=== PATIENT | female | born 1960 | race Caucasian/White ===

== ENCOUNTER 2021-06-19 05:39 | Day surgery (SDC) | payer OTHER ==
[~2021-06-19] VITALS: Ht 165.1 cm; Wt 109.5 kg
[2021-06-19] MEDS ORDERED: BENZOCAINE 20% 50 MCG/SPRAY 57 GM TP ONE (05:40)
[2021-06-19] MEDS ORDERED: LIDOCAINE 2% 30 ML JELLY TP ONE (05:40)
[2021-06-19] MEDS ORDERED: ALBUTEROL SULFATE 2.5 MG/0.5 ML NEB SOLUTION NEB ONE (05:40)
[2021-06-19] MEDS ORDERED: SODIUM CHLORIDE 0.9% 1,000 ML ONE (06:38)
[2021-06-19 06:59] LABS: COVID AG,FIA SOURCE NASOPHARYNGEAL
[2021-06-19] MEDS ORDERED: SODIUM CHLORIDE 0.9% 1,000 ML IV ONE (07:00)
[2021-06-19] MEDS ORDERED: FentaNYL CITRATE PF 100 MCG/2 ML VIAL ONE (07:43)
[2021-06-19] MEDS ORDERED: MIDAZOLAM HCL 5 MG/ML VIAL ONE (07:43)
[2021-06-19 08:20] LABS: GLUCOMETER DEV NAME(LOC) SDS.; GLUCOSE,POINT OF CARE 230 MG/DL (70-110)
[2021-06-19] MEDS ORDERED: MethylPREDNISolone SOD SUCC 125 MG/2 ML VIAL ONE (08:53)
[2021-06-19] MEDS ORDERED: MethylPREDNISolone SOD SUCC 125 MG/2 ML VIAL IVP ONE (09:00)
[2021-06-19] MEDS ORDERED: OXYGEN THERAPY IH SCH (20:00)
== END 2021-06-19 11:00 | disposition home or self-care (01) ==
LOC: SURGERY 05:39
PROVIDERS: ATTEND Internal Medicine Critical Care Medicine
DX: J38.4 Edema of larynx (principal); B37.0 Candidal stomatitis; E11.9 Type 2 diabetes mellitus without complications; Z79.899 Other long term (current) drug therapy; Z98.890 Other specified postprocedural states; G47.30 Sleep apnea, unspecified; Z72.89 Other problems related to lifestyle; E78.00 Pure hypercholesterolemia, unspecified
CPT/HCPCS: 31623; 31624; 71045; 82962; 87015; 87070; 87101; 87205; 87206; 87220; 87426; 88112; 88184; 88185; 88312; C9803; J2250; J2930; J3010; J7030; J7613